=== PATIENT | female | born 1950 | race Asian ===

== ENCOUNTER 2017-02-17 12:23 | Emergency (ER) | payer OTHER ==
[~2017-02-17] VITALS: Ht 149.9 cm; Wt 52.3 kg
[~2017-02-17 12:23] MED LIST: AMLO10TA55 PO; ASCO10007 PO; BECL8.7A5 IH; CALC-854 PO; HYDR25TA PO; LISI40TA4 PO; MONT10TA24 PO; MULT-1259 PO; PRO AIR PO
[2017-02-17 12:38] LABS: GLUCOSE,POINT OF CARE 141 MG/DL (70-110)
[2017-02-17] MEDS ORDERED: DEXAMETHASONE SOD PHOS 4 MG/ML 5 ML VIAL IVP ONE (12:45)
[2017-02-17] MEDS ORDERED: DiphenhydrAMINE HCL 50 MG/ML VIAL IVP ONE (12:45)
[2017-02-17 15:05] VITALS: BP 118/74
== END 2017-02-17 15:07 | disposition home or self-care (01) ==
LOC: EMS 12:25
DX: L50.0 Allergic urticaria (principal); I10 Essential (primary) hypertension; J45.909 Unspecified asthma, uncomplicated
CPT/HCPCS: 82962; 96374; 96375; 99285; J1100; J1200

== ENCOUNTER 2018-03-16 11:10 | Inpatient (IN) | payer OTHER ==
[~2018-03-16] VITALS: Ht 149.9 cm; Wt 51.5 kg
[2018-03-16] MEDS ORDERED: IPRATROPIUM BROMIDE 0.5 MG/2.5 ML NEB SOLUTION NEB ONE (11:45)
[2018-03-16] MEDS ORDERED: PROPARACAINE/FLUORESCEIN SOD 0.5-0.25% 0.5 ML OPHTHALMIC SOLUTION OS ONE (11:45)
[2018-03-16] MEDS ORDERED: MethylPREDNISolone SOD SUCC 125 MG/2 ML VIAL IVP ONE (11:45)
[2018-03-16] MEDS ORDERED: ALBUTEROL SULFATE 5 MG/ML 20 ML NEB SOLN [BULK] NEB ONE (11:45)
[2018-03-16 11:55] LABS: BASOPHILS % (AUTO) 0.3 % (0.0-2.0); EOSINOPHILS % (AUTO) 0.1 % (1.0-6.0); HEMATOCRIT 40.8 % (36-46); HEMOGLOBIN 13.7 g/dL (12.0-16.0); LYMPHOCYTES # (AUTO) 1.8 K/uL (1.0-4.8); LYMPHOCYTES % (AUTO) 12.2 % (22.0-44.0); MEAN CORPUSCULAR HEMOGLOBIN 31.3 pg (26.0-34.0); MEAN CORPUSCULAR HGB CONC 33.6 G/dL (31.0-37.0); MEAN CORPUSCULAR VOLUME 93 fL (80-100); MONOCYTES # (AUTO) 1.8 K/uL (0.1-1.0); MONOCYTES % (AUTO) 11.6 % (2.0-9.0); NEUTROPHILS # (AUTO) 11.5 K/uL (1.8-7.7); NEUTROPHILS % (AUTO) 75.8 % (40.0-70.0); PLATELET COUNT (AUTO) 361 K/uL (150-450); RED BLOOD CELL COUNT(AUTO) 4.39 MIL/uL (4.00-5.20); RED CELL DISTRIBUTION WIDTH 12.5 % (11.5-14.5)
[2018-03-16 12:06] LABS: ANION GAP 7 mmol/L (8-16); CALCIUM, TOTAL 9.6 mg/dL (8.8-10.5); CARBON DIOXIDE 32 mmol/L (22-29); CHLORIDE 99 mmol/L (98-107); CREATININE 0.69 mg/dL (0.60-1.30); GLOMERULAR FILTR. RATE CALC > 60 mL/min (>60); GLUCOSE,RANDOM 103 mg/dL (70-110); POTASSIUM 3.3 mmol/L (3.5-5.1); SODIUM SERUM 138 mmol/L (136-145); UREA NITROGEN, BLOOD 11 mg/dL (7-18)
[2018-03-16 12:27] LABS: B-TYPE NATRIURETIC PEPTIDE 165 pg/mL (0-100)
[2018-03-16 12:37] LABS: ALANINE AMINOTRANSFERASE 44 U/L (12-78); ALBUMIN 3.3 g/dL (3.4-5.0); ALKALINE PHOSPHATASE 125 U/L (46-116); ASPARTATE AMINOTRANSFERASE 27 U/L (15-37); BILIRUBIN,TOTAL 0.3 mg/dL (0.1-1.0); CREATINE KINASE, TOTAL 124 U/L (26-192); TOTAL PROTEIN, SERUM 8.8 g/dL (6.4-8.2)
[2018-03-16] MEDS ORDERED: TRAVOPROST-Z 0.004% 2.5 ML OPHTHALMIC SOLUTION OS ONE (13:15)
[2018-03-16] MEDS ORDERED: ACETAMINOPHEN 325 MG TABLET PO PRN ×2 (15:30→20:45)
[2018-03-16] MEDS ORDERED: ONDANSETRON HCL 4 MG/2 ML VIAL IVP PRN ×2 (15:30→20:45)
[2018-03-16 16:35] VITALS: BP 140/58
[2018-03-16] MEDS ORDERED: LOSA50TA37 PO (16:55)
[2018-03-16] MEDS ORDERED: IBUP-1506 PO (16:55)
[2018-03-16] MEDS ORDERED: FLUT110HFA IH (16:57)
[2018-03-16] MEDS ORDERED: PNEUMOCOCCAL VACCINE POLYVALENT 0.5 ML VIAL [PPSV23] IM ONE (17:00)
[2018-03-16] MEDS ORDERED: POTASSIUM CHL 10 MEQ/WATER 50 ML IV PRN (18:00)
[2018-03-16] MEDS ORDERED: METF500T6 PO (18:00)
[2018-03-16] MEDS ORDERED: POTASSIUM CHLORIDE 20 MEQ ER TABLET PO PRN (18:00)
[2018-03-16] MEDS ORDERED: IPRATROPIUM BROMIDE 0.5 MG/2.5 ML NEB SOLUTION NEB SCH (19:00)
[2018-03-16] MEDS ORDERED: ALBUTEROL SULFATE 2.5 MG/0.5 ML NEB SOLUTION NEB SCH (19:00)
[2018-03-16 19:30] VITALS: BP 135/70
[2018-03-16] MEDS ORDERED: ZOLPIDEM TARTRATE 5 MG TABLET PO PRN (20:45)
[2018-03-16] MEDS ORDERED: IBUPROFEN 400 MG TABLET PO PRN (20:45)
[2018-03-16] MEDS ORDERED: IPRATROPIUM BROMIDE 0.5 MG/2.5 ML NEB SOLUTION NEB PRN (20:45)
[2018-03-16] MEDS ORDERED: ALBUTEROL SULFATE 2.5 MG/0.5 ML NEB SOLUTION NEB PRN (20:45)
[2018-03-16] MEDS ORDERED: FLUTICASONE PROPIONATE HFA 110 MCG/PUFF 12 GM INHALER IH SCH (21:00)
[2018-03-16] MEDS: HYDROCHLOROTHIAZIDE 25 MG TABLET PO SCH (21:00)
[2018-03-16] MEDS ORDERED: BECLOMETHASONE DIPR HFA 80 MCG/PUFF 10.6 GM INHALER IH SCH (21:00)
[2018-03-16] MEDS ORDERED: SODIUM CHLORIDE 0.9% 500 ML IV ONE (22:31)
[2018-03-16] MEDS: AZITHROMYCIN 500 MG/NS 250 ML IV SCH (22:42)
[2018-03-16] MEDS: MethylPREDNISolone SOD SUCC 125 MG/2 ML VIAL IVP SCH (23:21)
[2018-03-16] MEDS: CefTRIAXone SODIUM 1 GM in DEXTROSE 5%-WATER 10 ML IV SCH (23:21)
[2018-03-16] MEDS: HEPARIN SODIUM,PORCINE 5,000 UNITS/ML VIAL SQ SCH (23:28)
[2018-03-17] VITALS (7 sets, daily range): BP systolic 121–156; BP diastolic 56–70
[2018-03-17] MEDS: ALBUTEROL SULFATE 2.5 MG/0.5 ML NEB SOLUTION NEB SCH ×4 (02:21→19:23)
[2018-03-17] MEDS: IPRATROPIUM BROMIDE 0.5 MG/2.5 ML NEB SOLUTION NEB SCH ×4 (02:21→19:23)
[2018-03-17] MEDS: PANTOPRAZOLE SODIUM 40 MG/VIAL IVP SCH (08:32)
[2018-03-17] MEDS: HEPARIN SODIUM,PORCINE 5,000 UNITS/ML VIAL SQ SCH ×2 (08:32→16:54)
[2018-03-17] MEDS: MethylPREDNISolone SOD SUCC 125 MG/2 ML VIAL IVP SCH ×2 (08:32→16:57)
[2018-03-17] MEDS: MetFORMIN HCL 500 MG TABLET PO SCH (08:33)
[2018-03-17] MEDS: LISINOPRIL 20 MG TABLET PO SCH (08:33)
[2018-03-17] MEDS: LOSARTAN POTASSIUM 50 MG TABLET PO SCH (08:33)
[2018-03-17] MEDS: MONTELUKAST SODIUM 10 MG TABLET PO SCH (12:34)
[2018-03-17] MEDS: HYDROCHLOROTHIAZIDE 25 MG TABLET PO SCH (20:27)
[2018-03-17] MEDS: CefTRIAXone SODIUM 1 GM in DEXTROSE 5%-WATER 10 ML IV SCH (20:30)
[2018-03-17] MEDS: AZITHROMYCIN 500 MG/NS 250 ML IV SCH (21:24)
[2018-03-18] MEDS: HEPARIN SODIUM,PORCINE 5,000 UNITS/ML VIAL SQ SCH ×4 (00:16→23:16)
[2018-03-18] MEDS: MethylPREDNISolone SOD SUCC 125 MG/2 ML VIAL IVP SCH ×3 (00:16→16:00)
[2018-03-18] MEDS: IPRATROPIUM BROMIDE 0.5 MG/2.5 ML NEB SOLUTION NEB SCH ×4 (02:00→19:57)
[2018-03-18] MEDS: ALBUTEROL SULFATE 2.5 MG/0.5 ML NEB SOLUTION NEB SCH ×4 (02:00→19:56)
[2018-03-18 04:48] VITALS: BP 147/81
[2018-03-18 07:14] VITALS: BP 156/78
[2018-03-18 07:16] LABS: BASOPHILS % (AUTO) 0.1 % (0.0-2.0); EOSINOPHILS % (AUTO) 0 % (1.0-6.0); HEMATOCRIT 34.9 % (36-46); HEMOGLOBIN 12.5 g/dL (12.0-16.0); LYMPHOCYTES # (AUTO) 0.7 K/uL (1.0-4.8); LYMPHOCYTES % (AUTO) 4.6 % (22.0-44.0); MEAN CORPUSCULAR HEMOGLOBIN 34.2 pg (26.0-34.0); MEAN CORPUSCULAR HGB CONC 35.7 G/dL (31.0-37.0); MEAN CORPUSCULAR VOLUME 96 fL (80-100); MONOCYTES # (AUTO) 0.6 K/uL (0.1-1.0); MONOCYTES % (AUTO) 3.8 % (2.0-9.0); NEUTROPHILS # (AUTO) 13.5 K/uL (1.8-7.7); PLATELET COUNT (AUTO) 333 K/uL (150-450); RED BLOOD CELL COUNT(AUTO) 3.65 MIL/uL (4.00-5.20); RED CELL DISTRIBUTION WIDTH 12.6 % (11.5-14.5)
[2018-03-18] MEDS ORDERED: ALBU8.5H8 IH (07:20)
[2018-03-18 07:36] LABS: NEUTROPHILS % (AUTO) 91.5 % (40.0-70.0)
[2018-03-18 07:38] LABS: ANION GAP 2 mmol/L (8-16); CALCIUM, TOTAL 8.7 mg/dL (8.8-10.5); CARBON DIOXIDE 33 mmol/L (22-29); CHLORIDE 99 mmol/L (98-107); CREATININE 0.69 mg/dL (0.60-1.30); GLOMERULAR FILTR. RATE CALC > 60 mL/min (>60); GLUCOSE,RANDOM 153 mg/dL (70-110); POTASSIUM 3.9 mmol/L (3.5-5.1); SODIUM SERUM 134 mmol/L (136-145); UREA NITROGEN, BLOOD 19 mg/dL (7-18)
[2018-03-18] MEDS: MetFORMIN HCL 500 MG TABLET PO SCH (08:55)
[2018-03-18] MEDS: LISINOPRIL 20 MG TABLET PO SCH (08:55)
[2018-03-18] MEDS: PANTOPRAZOLE SODIUM 40 MG/VIAL IVP SCH (08:55)
[2018-03-18] MEDS: LOSARTAN POTASSIUM 50 MG TABLET PO SCH (08:56)
[2018-03-18] MEDS: AmLODIPine BESYLATE 10 MG TABLET PO SCH (08:56)
[2018-03-18 11:07] VITALS: BP 147/63
[2018-03-18] MEDS: MONTELUKAST SODIUM 10 MG TABLET PO SCH (11:27)
[2018-03-18 15:48] VITALS: BP 141/66
[2018-03-18 19:31] VITALS: BP 148/63
[2018-03-18] MEDS: HYDROCHLOROTHIAZIDE 25 MG TABLET PO SCH (20:25)
[2018-03-18] MEDS: CefTRIAXone SODIUM 1 GM in DEXTROSE 5%-WATER 10 ML IV SCH (20:25)
[2018-03-18] MEDS: PredniSONE 10 MG TABLET PO SCH (20:26)
[2018-03-18] MEDS: AZITHROMYCIN 500 MG/NS 250 ML IV SCH (23:16)
[2018-03-18 23:42] VITALS: BP 132/57
[2018-03-19] MEDS: ALBUTEROL SULFATE 2.5 MG/0.5 ML NEB SOLUTION NEB SCH ×3 (02:14→14:42)
[2018-03-19] MEDS: IPRATROPIUM BROMIDE 0.5 MG/2.5 ML NEB SOLUTION NEB SCH ×3 (02:14→14:42)
[2018-03-19 07:12] VITALS: BP 148/65
[2018-03-19] MEDS: LISINOPRIL 20 MG TABLET PO SCH (08:41)
[2018-03-19] MEDS: MetFORMIN HCL 500 MG TABLET PO SCH (08:41)
[2018-03-19] MEDS: PredniSONE 10 MG TABLET PO SCH (08:41)
[2018-03-19] MEDS: LOSARTAN POTASSIUM 50 MG TABLET PO SCH (08:41)
[2018-03-19] MEDS: HEPARIN SODIUM,PORCINE 5,000 UNITS/ML VIAL SQ SCH ×2 (08:41→16:00)
[2018-03-19] MEDS: PANTOPRAZOLE SODIUM 40 MG/VIAL IVP SCH (08:41)
[2018-03-19] MEDS: AmLODIPine BESYLATE 10 MG TABLET PO SCH (08:41)
[2018-03-19 09:06] LABS: HEMOGLOBIN 13.2 g/dL (12.0-16.0); MEAN CORPUSCULAR HEMOGLOBIN 33.6 pg (26.0-34.0); MEAN CORPUSCULAR HGB CONC 34.8 G/dL (31.0-37.0); MEAN CORPUSCULAR VOLUME 97 fL (80-100); PLATELET COUNT (AUTO) 386 K/uL (150-450); RED BLOOD CELL COUNT(AUTO) 3.94 MIL/uL (4.00-5.20); RED CELL DISTRIBUTION WIDTH 12.3 % (11.5-14.5)
[2018-03-19 09:53] LABS: BAND NEUTROPHILS % (MANUAL) 6 % (0-5); EOSINOPHILS % (MANUAL) 1 % (1-6); LYMPHOCYTES % (MANUAL) 10 % (22-44); MONOCYTES % (MANUAL) 6 % (2-9); SEGMENTED NEUTROPHILS % 77 % (40-70)
[2018-03-19] MEDS ORDERED: LORazepam 0.5 MG TABLET PO PRN (10:45)
[2018-03-19] MEDS ORDERED: CITALOPRAM HYDROBROMIDE 20 MG TABLET PO ONE (10:45)
[2018-03-19] MEDS ORDERED: POTASSIUM CHLORIDE 10 MEQ ER TABLET PO ONE (10:45)
[2018-03-19] MEDS ORDERED: LOSARTAN POTASSIUM 25 MG TABLET PO SCH (11:00)
[2018-03-19 11:08] VITALS: BP 133/60
[2018-03-19] MEDS: MONTELUKAST SODIUM 10 MG TABLET PO SCH (11:45)
[2018-03-19] MEDS ORDERED: AZITHROMYCIN 500 MG/NS 250 ML IV SCH (15:00)
[2018-03-19] MEDS ORDERED: PRED20 PO (15:01)
[2018-03-19] MEDS ORDERED: PRED10 PO (15:01)
[2018-03-19] MEDS ORDERED: PRED5 PO (15:01)
[2018-03-19] MEDS: AZITHROMYCIN 500 MG/NS 250 ML IV SCH (15:22)
[2018-03-20] MEDS ORDERED: LOSARTAN POTASSIUM 25 MG TABLET PO SCH (09:00)
[2018-03-20] MEDS ORDERED: CITALOPRAM HYDROBROMIDE 20 MG TABLET PO SCH (09:00)
[2018-03-20] MEDS ORDERED: LISINOPRIL 20 MG TABLET PO SCH (09:00)
== END 2018-03-19 17:10 | disposition home health service (06) | DRG 189 ==
LOC: EMS 11:11 → 5N 15:27
PROVIDERS: ADMIT Hospitalist; ATTEND Hospitalist
DX: J96.01 Acute respiratory failure with hypoxia (principal); J44.1 Chronic obstructive pulmonary disease with (acute) exacerbation; J44.0 Chronic obstructive pulmonary disease with (acute) lower respiratory infection; J20.9 Acute bronchitis, unspecified; H40.9 Unspecified glaucoma; I10 Essential (primary) hypertension; H54.61 Unqualified visual loss, right eye, normal vision left eye; Z79.899 Other long term (current) drug therapy; Z28.21 Immunization not carried out because of patient refusal
CPT/HCPCS: 71250; 83735; 84132; 93005; 94640; 94644; 99285; C9113; J0456; J0696; J1644; J2930; J7040; J7060

== ENCOUNTER 2018-08-17 10:09 | Emergency (ER) | payer OTHER ==
[~2018-08-17] VITALS: Ht 144.8 cm; Wt 51.4 kg
[~2018-08-17 10:09] MED LIST changes: +ALBU8.5H8 IH; +FLUT110HFA IH; +IBUP-1506 PO; +LOSA50TA25 PO; +METF-960 PO; +PRED10 PO; +PRED20 PO; +PRED5 PO; -PRO AIR PO
[2018-08-17 10:38] LABS: GLUCOSE,POINT OF CARE 89 MG/DL (70-110)
[2018-08-17 12:06] VITALS: BP 145/76
== END 2018-08-17 12:46 | disposition home or self-care (01) ==
LOC: EMS 10:10
DX: H66.91 Otitis media, unspecified, right ear (principal); I10 Essential (primary) hypertension; J44.9 Chronic obstructive pulmonary disease, unspecified; Z79.84 Long term (current) use of oral hypoglycemic drugs; Z79.899 Other long term (current) drug therapy

== ENCOUNTER 2018-11-26 06:43 | Inpatient (IN) | payer OTHER ==
[~2018-11-26] VITALS: Ht 142.2 cm; Wt 54.1 kg
[~2018-11-26 06:43] MED LIST changes: -HYDR25TA PO; -LOSA50TA25 PO; +LOSA50TA64 PO; -MONT10TA24 PO; -PRED10 PO; -PRED20 PO
[2018-11-26] MEDS ORDERED: KETOROLAC TROMETHAMINE 30 MG/ML VIAL IVP ONE (07:30)
[2018-11-26 07:34] LABS: GLUCOSE,POINT OF CARE 124 MG/DL (70-110)
[2018-11-26 08:10] LABS: BASOPHILS % (AUTO) 0.4 % (0.0-2.0); EOSINOPHILS % (AUTO) 0.2 % (1.0-6.0); HEMATOCRIT 43.4 % (36-46); HEMOGLOBIN 14.5 g/dL (12.0-16.0); LYMPHOCYTES # (AUTO) 0.7 K/uL (1.0-4.8); MEAN CORPUSCULAR HEMOGLOBIN 31.4 pg (26.0-34.0); MEAN CORPUSCULAR HGB CONC 33.4 G/dL (31.0-37.0); MEAN CORPUSCULAR VOLUME 94 fL (80-100); MONOCYTES # (AUTO) 0.3 K/uL (0.1-1.0); NEUTROPHILS # (AUTO) 7.5 K/uL (1.8-7.7); PLATELET COUNT (AUTO) 194 K/uL (150-450); RED BLOOD CELL COUNT(AUTO) 4.61 MIL/uL (4.00-5.20); RED CELL DISTRIBUTION WIDTH 12.7 % (11.5-14.5)
[2018-11-26 08:18] LABS: NEUTROPHILS % (AUTO) 88.4 % (40.0-70.0)
[2018-11-26 08:21] LABS: ANION GAP 9 mmol/L (8-16); CALCIUM, TOTAL 9.6 mg/dL (8.8-10.5); CARBON DIOXIDE 28 mmol/L (22-29); CHLORIDE 102 mmol/L (98-107); CREATININE 0.49 mg/dL (0.60-1.30); GLOMERULAR FILTR. RATE CALC > 60 mL/min (>60); GLUCOSE,RANDOM 134 mg/dL (70-110); POTASSIUM 3.7 mmol/L (3.5-5.1); SODIUM SERUM 139 mmol/L (136-145); UREA NITROGEN, BLOOD 18 mg/dL (7-18)
[2018-11-26 08:26] LABS: ALANINE AMINOTRANSFERASE 25 U/L (12-78); ALBUMIN 3.8 g/dL (3.4-5.0); ALKALINE PHOSPHATASE 59 U/L (46-116); ASPARTATE AMINOTRANSFERASE 29 U/L (15-37); BILIRUBIN,TOTAL 0.8 mg/dL (0.1-1.0); LIPASE 154 U/L (73-393); TOTAL PROTEIN, SERUM 7.7 g/dL (6.4-8.2)
[2018-11-26] MEDS ORDERED: SODIUM CHLORIDE 0.9% 0 ML ONE (09:01)
[2018-11-26] MEDS ORDERED: IOVERSOL 350 MG/ML 100 ML VIAL ONE (09:01)
[2018-11-26 09:31] LABS: APPEARANCE,URINE TURBID (CLEAR); BILIRUBIN,URINE NEGATIVE (NEGATIVE); GLUCOSE, URINE (UA) NEGATIVE (NEGATIVE); KETONES,URINE NEGATIVE (NEGATIVE); LEUKOCYTE ESTERASE ,URINE NEGATIVE (NEGATIVE); NITRATE,URINE NEGATIVE (NEGATIVE); OCCULT BLOOD,URINE NEGATIVE (NEGATIVE); PROTEIN,URINE NEGATIVE (NEGATIVE); UROBILINOGEN,URINE 0.2 mg/dL (<=1.0)
[2018-11-26] MEDS ORDERED: INSULIN LISPRO 100 UNITS/ML SQ PRN (11:15)
[2018-11-26] MEDS ORDERED: ONDANSETRON HCL 4 MG/2 ML VIAL IVP PRN (11:15)
[2018-11-26] MEDS ORDERED: ACETAMINOPHEN 325 MG TABLET PO PRN ×2 (11:15)
[2018-11-26] MEDS ORDERED: 0.9% SODIUM CHLORIDE 10 ML SYRINGE IVP PRN (11:15)
[2018-11-26] MEDS ORDERED: DEXTROSE 50%-WATER 25 GM/50 ML SYRINGE IVP PRN (11:15)
[2018-11-26] MEDS ORDERED: ALBUTEROL SULFATE 2.5 MG/0.5 ML NEB SOLUTION NEB PRN (11:15)
[2018-11-26] MEDS ORDERED: DEXTROSE 5%-0.45% SODIUM CHL 1,000 ML IV ONE (11:15)
[2018-11-26 13:39] VITALS: BP 153/79
[2018-11-26] MEDS: ONDANSETRON HCL 4 MG/2 ML VIAL IVP PRN (13:55)
[2018-11-26] MEDS: MORPHINE SULFATE 2 MG/ML SYRINGE IVP PRN ×3 (13:57→23:55)
[2018-11-26] MEDS ORDERED: BARIUM SULFATE 0.1% SUSPENSION 450 ML BOTTLE ONE (15:33)
[2018-11-26] MEDS ORDERED: SODIUM CHLORIDE 0.9% 100 ML ONE (15:38)
[2018-11-26] MEDS ORDERED: IOVERSOL 320 MG/ML 100 ML VIAL ONE (15:38)
[2018-11-26 16:17] VITALS: BP 150/80
[2018-11-26] MEDS: HEPARIN SODIUM,PORCINE 5,000 UNITS/ML VIAL SQ SCH ×2 (16:18→23:20)
[2018-11-26 16:59] LABS: GLUCOMETER DEV NAME(LOC) 6N.2; GLUCOSE,POINT OF CARE 136 MG/DL (70-110)
[2018-11-26 19:51] VITALS: BP 146/65
[2018-11-26] MEDS: DOCUSATE SODIUM 100 MG CAPSULE PO SCH (21:00)
[2018-11-26 22:09] LABS: GLUCOMETER DEV NAME(LOC) 6N.1; GLUCOSE,POINT OF CARE 165 MG/DL (70-110)
[2018-11-26 23:30] VITALS: BP 146/65
[2018-11-27] VITALS (7 sets, daily range): BP systolic 122–154; BP diastolic 56–67
[2018-11-27 06:14] LABS: GLUCOMETER DEV NAME(LOC) 6N.1; GLUCOSE,POINT OF CARE 128 MG/DL (70-110)
[2018-11-27 06:20] LABS: BASOPHILS % (AUTO) 0.3 % (0.0-2.0); EOSINOPHILS % (AUTO) 0 % (1.0-6.0); HEMATOCRIT 39.6 % (36-46); HEMOGLOBIN 13.2 g/dL (12.0-16.0); LYMPHOCYTES # (AUTO) 1.2 K/uL (1.0-4.8); LYMPHOCYTES % (AUTO) 17.3 % (22.0-44.0); MEAN CORPUSCULAR HEMOGLOBIN 31.4 pg (26.0-34.0); MEAN CORPUSCULAR HGB CONC 33.3 G/dL (31.0-37.0); MEAN CORPUSCULAR VOLUME 94 fL (80-100); MONOCYTES % (AUTO) 13.7 % (2.0-9.0); NEUTROPHILS # (AUTO) 4.9 K/uL (1.8-7.7); NEUTROPHILS % (AUTO) 68.7 % (40.0-70.0); PLATELET COUNT (AUTO) 184 K/uL (150-450); RED CELL DISTRIBUTION WIDTH 12.6 % (11.5-14.5)
[2018-11-27] MEDS: MORPHINE SULFATE 2 MG/ML SYRINGE IVP PRN (06:27)
[2018-11-27] MEDS: ONDANSETRON HCL 4 MG/2 ML VIAL IVP PRN (06:28)
[2018-11-27 06:50] LABS: ALANINE AMINOTRANSFERASE 22 U/L (12-78); ALKALINE PHOSPHATASE 47 U/L (46-116); ANION GAP 7 mmol/L (8-16); ASPARTATE AMINOTRANSFERASE 27 U/L (15-37); BILIRUBIN,TOTAL 0.7 mg/dL (0.1-1.0); CALCIUM, TOTAL 8.3 mg/dL (8.8-10.5); CARBON DIOXIDE 29 mmol/L (22-29); CHLORIDE 104 mmol/L (98-107); CREATININE 0.55 mg/dL (0.60-1.30); GLOMERULAR FILTR. RATE CALC > 60 mL/min (>60); GLUCOSE,RANDOM 116 mg/dL (70-110); POTASSIUM 3.3 mmol/L (3.5-5.1); SODIUM SERUM 140 mmol/L (136-145); TOTAL PROTEIN, SERUM 6.5 g/dL (6.4-8.2); UREA NITROGEN, BLOOD 16 mg/dL (7-18)
[2018-11-27] MEDS: HEPARIN SODIUM,PORCINE 5,000 UNITS/ML VIAL SQ SCH ×2 (08:00→16:00)
[2018-11-27] MEDS: DOCUSATE SODIUM 100 MG CAPSULE PO SCH ×2 (09:00→20:34)
[2018-11-27] MEDS ORDERED: SODIUM CHLORIDE 0.9% 500 ML IV ONE (09:22)
[2018-11-27] MEDS: POTASSIUM CHL 10 MEQ/WATER 50 ML IV SCH ×2 (09:26→16:43)
[2018-11-27] MEDS: PANTOPRAZOLE SODIUM 40 MG/VIAL IVP SCH (09:26)
[2018-11-27] MEDS ORDERED: BUPIVACAINE HCL/PF 0.25% 30 ML VIAL ONE (11:24)
[2018-11-27] MEDS ORDERED: RINGERS SOLUTION,LACTATED 2,000 ML IV ONE (11:25)
[2018-11-27] MEDS ORDERED: SODIUM CL IRRIG SOLN BAG 3,000 ML IRRIG ONE (11:25)
[2018-11-27] MEDS ORDERED: PROPOFOL 1% 20 ML VIAL IVP ONE (12:00)
[2018-11-27] MEDS ORDERED: SUCCINYLCHOLINE CHLORIDE 20 MG/ML 10 ML VIAL IVP ONE (12:00)
[2018-11-27] MEDS ORDERED: 0.9% SODIUM CHLORIDE 10 ML VIAL IVP ONE (12:00)
[2018-11-27] MEDS ORDERED: NEOSTIGMINE METHYLSULFATE 1 MG/ML 10 ML VIAL IVP ONE (12:00)
[2018-11-27] MEDS ORDERED: ROCURONIUM BROMIDE 10 MG/ML 5 ML VIAL IVP ONE (12:00)
[2018-11-27] MEDS ORDERED: GLYCOPYRROLATE 0.2 MG/ML VIAL IM ONE (12:00)
[2018-11-27] MEDS ORDERED: LIDOCAINE/PF 2% 5 ML VIAL INJ ONE (12:00)
[2018-11-27] MEDS ORDERED: KETOROLAC TROMETHAMINE 60 MG/2 ML VIAL IM ONE (12:00)
[2018-11-27] MEDS ORDERED: EPHEDrine SULFATE 50 MG/ML VIAL IM ONE (12:00)
[2018-11-27] MEDS ORDERED: ONDANSETRON HCL 4 MG/2 ML VIAL IVP ONE (12:00)
[2018-11-27] MEDS ORDERED: HYDROCODONE/ACETAMINOPHEN 5-325 MG TABLET PO PRN (13:15)
[2018-11-27] MEDS ORDERED: MORPHINE SULFATE 2 MG/ML SYRINGE IVP PRN (13:15)
[2018-11-27] MEDS ORDERED: METOCLOPRAMIDE HCL 5 MG/ML 2 ML VIAL IVP PRN (13:15)
[2018-11-27] MEDS: CeFAZolin 1 GM/DEXTROSE 50 ML IV SCH ×2 (14:32→20:35)
[2018-11-27 19:54] LABS: GLUCOMETER DEV NAME(LOC) 6N.1; GLUCOSE,POINT OF CARE 125 MG/DL (70-110)
[2018-11-27 19:54] LABS: GLUCOMETER DEV NAME(LOC) 6N.2; GLUCOSE,POINT OF CARE 106 MG/DL (70-110)
[2018-11-27 22:44] LABS: GLUCOMETER DEV NAME(LOC) 6N.2; GLUCOSE,POINT OF CARE 95 MG/DL (70-110)
[2018-11-28 05:10] VITALS: BP 133/61
[2018-11-28] MEDS: CeFAZolin 1 GM/DEXTROSE 50 ML IV SCH (05:50)
[2018-11-28 05:53] LABS: BASOPHILS % (AUTO) 0.5 % (0.0-2.0); EOSINOPHILS % (AUTO) 2.6 % (1.0-6.0); HEMATOCRIT 37.5 % (36-46); HEMOGLOBIN 12.7 g/dL (12.0-16.0); LYMPHOCYTES # (AUTO) 1.3 K/uL (1.0-4.8); LYMPHOCYTES % (AUTO) 27.9 % (22.0-44.0); MEAN CORPUSCULAR HEMOGLOBIN 32.1 pg (26.0-34.0); MEAN CORPUSCULAR HGB CONC 33.8 G/dL (31.0-37.0); MEAN CORPUSCULAR VOLUME 95 fL (80-100); MONOCYTES # (AUTO) 0.8 K/uL (0.1-1.0); MONOCYTES % (AUTO) 16.1 % (2.0-9.0); NEUTROPHILS # (AUTO) 2.5 K/uL (1.8-7.7); NEUTROPHILS % (AUTO) 52.9 % (40.0-70.0); PLATELET COUNT (AUTO) 148 K/uL (150-450); RED BLOOD CELL COUNT(AUTO) 3.94 MIL/uL (4.00-5.20); RED CELL DISTRIBUTION WIDTH 12.6 % (11.5-14.5)
[2018-11-28 06:04] LABS: GLUCOMETER DEV NAME(LOC) 6N.1; GLUCOSE,POINT OF CARE 83 MG/DL (70-110)
[2018-11-28 06:21] LABS: ALANINE AMINOTRANSFERASE 19 U/L (12-78); ALBUMIN 2.6 g/dL (3.4-5.0); ALKALINE PHOSPHATASE 47 U/L (46-116); ANION GAP 6 mmol/L (8-16); ASPARTATE AMINOTRANSFERASE 24 U/L (15-37); CALCIUM, TOTAL 7.7 mg/dL (8.8-10.5); CARBON DIOXIDE 29 mmol/L (22-29); CHLORIDE 108 mmol/L (98-107); CREATININE 0.52 mg/dL (0.60-1.30); GLOMERULAR FILTR. RATE CALC > 60 mL/min (>60); GLUCOSE,RANDOM 84 mg/dL (70-110); POTASSIUM 3.5 mmol/L (3.5-5.1); SODIUM SERUM 143 mmol/L (136-145); TOTAL PROTEIN, SERUM 5.8 g/dL (6.4-8.2); UREA NITROGEN, BLOOD 14 mg/dL (7-18)
[2018-11-28] MEDS ORDERED: FentaNYL CITRATE-PF 100 MCG/2 ML VIAL IV ONE (06:50)
[2018-11-28] MEDS ORDERED: MIDAZOLAM HCL 2 MG/2 ML VIAL IVP ONE (06:50)
[2018-11-28 07:55] VITALS: BP 129/77
[2018-11-28] MEDS: HEPARIN SODIUM,PORCINE 5,000 UNITS/ML VIAL SQ SCH ×4 (09:36→23:55)
[2018-11-28] MEDS: PANTOPRAZOLE SODIUM 40 MG/VIAL IVP SCH (09:36)
[2018-11-28] MEDS: DOCUSATE SODIUM 100 MG CAPSULE PO SCH ×2 (09:36→20:42)
[2018-11-28 12:09] VITALS: BP 138/65
[2018-11-28 14:35] LABS: GLUCOMETER DEV NAME(LOC) 6N.1; GLUCOSE,POINT OF CARE 74 MG/DL (70-110)
[2018-11-28 15:44] VITALS: BP 126/68
[2018-11-28 19:39] VITALS: BP 113/46
[2018-11-28 19:49] LABS: GLUCOMETER DEV NAME(LOC) 6N.2; GLUCOSE,POINT OF CARE 142 MG/DL (70-110)
[2018-11-28 23:30] VITALS: BP 119/54
[2018-11-29 03:45] VITALS: BP 123/62
[2018-11-29 04:49] LABS: GLUCOMETER DEV NAME(LOC) 6N.1; GLUCOSE,POINT OF CARE 81 MG/DL (70-110)
[2018-11-29 06:59] LABS: GLUCOMETER DEV NAME(LOC) 6N.2; GLUCOSE,POINT OF CARE 74 MG/DL (70-110)
[2018-11-29] MEDS: DOCUSATE SODIUM 100 MG CAPSULE PO SCH (07:59)
[2018-11-29] MEDS: HEPARIN SODIUM,PORCINE 5,000 UNITS/ML VIAL SQ SCH ×2 (08:00→15:54)
[2018-11-29] MEDS: PANTOPRAZOLE SODIUM 40 MG/VIAL IVP SCH (08:00)
[2018-11-29 08:02] VITALS: BP 141/69
[2018-11-29 12:33] VITALS: BP 147/54
[2018-11-29 15:39] VITALS: BP 138/56
[2018-11-30 09:28] LABS: GLUCOMETER DEV NAME(LOC) 6N.1; GLUCOSE,POINT OF CARE 128 MG/DL (70-110)
[2018-11-30 09:28] LABS: GLUCOMETER DEV NAME(LOC) 6N.2; GLUCOSE,POINT OF CARE 119 MG/DL (70-110)
== END 2018-11-29 18:40 | disposition home or self-care (01) | DRG 336 ==
LOC: EMS 06:43 → 6N 11:31
PROVIDERS: ADMIT Internal Medicine; ATTEND Internal Medicine
PROC: 3E02340 Introduction of Influenza Vaccine into Muscle, Percutaneous Approach (ICD-10-PCS; 2018-11-26)
PROC: 0DN84ZZ Release Small Intestine, Percutaneous Endoscopic Approach (ICD-10-PCS; principal; 2018-11-27 12:30)
DX: K56.50 Intestinal adhesions [bands], unspecified as to partial versus complete obstruction (principal); K46.0 Unspecified abdominal hernia with obstruction, without gangrene; Q43.3 Congenital malformations of intestinal fixation; E11.9 Type 2 diabetes mellitus without complications; J45.909 Unspecified asthma, uncomplicated; Z68.26 Body mass index [BMI] 26.0-26.9, adult; Z23 Encounter for immunization; E27.9 Disorder of adrenal gland, unspecified; I10 Essential (primary) hypertension; J44.9 Chronic obstructive pulmonary disease, unspecified; N28.1 Cyst of kidney, acquired; Z82.49 Family history of ischemic heart disease and other diseases of the circulatory system; Z87.891 Personal history of nicotine dependence; Z79.899 Other long term (current) drug therapy; Z79.84 Long term (current) use of oral hypoglycemic drugs
CPT/HCPCS: 74019; 74176; 74177; 76705; 93005; 93306; 96361; 96374; C9113; G0378; J0330; J0690; J1644; J1885; J2250; J2270; J2405; J2704; J3010; J3480; J3490; J7040; J7050; J7120

== ENCOUNTER 2019-12-25 11:16 | Inpatient (IN) | payer OTHER ==
[~2019-12-25] VITALS: Ht 154.9 cm; Wt 53.7 kg
[~2019-12-25 11:16] MED LIST changes: -AMLO10TA55 PO; -ASCO10007 PO; -IBUP-1506 PO; -LISI40TA4 PO; -LOSA50TA64 PO; -PRED5 PO
[2019-12-25] MEDS ORDERED: ISOS10TA16 PO (11:30)
[2019-12-25] MEDS ORDERED: LOSA-30 PO (11:30)
[2019-12-25] MEDS ORDERED: ATOR20TA86 PO (11:30)
[2019-12-25] MEDS ORDERED: AMLO10TA7 PO (11:30)
[2019-12-25] MEDS ORDERED: ASPI-556 PO (11:30)
[2019-12-25] MEDS ORDERED: MONT10TA21 PO (11:30)
[2019-12-25] MEDS ORDERED: ACETAMINOPHEN 325 MG TABLET PO ONE (11:45)
[2019-12-25] MEDS ORDERED: LOSA-88 PO (11:51)
[2019-12-25] MEDS ORDERED: ISOS30TA6 PO (11:51)
[2019-12-25] MEDS ORDERED: ALEN70TA19 PO (11:51)
[2019-12-25] MEDS ORDERED: BECL10.62 IH (11:51)
[2019-12-25] MEDS ORDERED: AZITHROMYCIN 500 MG/NS 250 ML IV ONE (13:00)
[2019-12-25] MEDS ORDERED: CefTRIAXone 1 GM/DEXTROSE 50 ML IV ONE (13:00)
[2019-12-25 13:41] LABS: BASOPHILS % (AUTO) 0.3 % (0.0-2.0); EOSINOPHILS % (AUTO) 1.1 % (1.0-6.0); HEMATOCRIT 35.9 % (36-46); HEMOGLOBIN 11.7 g/dL (12.0-16.0); LYMPHOCYTES # (AUTO) 1.1 K/uL (1.0-4.8); LYMPHOCYTES % (AUTO) 9.3 % (22.0-44.0); MEAN CORPUSCULAR HEMOGLOBIN 30.5 pg (26.0-34.0); MEAN CORPUSCULAR HGB CONC 32.5 G/dL (31.0-37.0); MEAN CORPUSCULAR VOLUME 94 fL (80-100); MONOCYTES # (AUTO) 1.5 K/uL (0.1-1.0); MONOCYTES % (AUTO) 12.7 % (2.0-9.0); NEUTROPHILS % (AUTO) 76.6 % (40.0-70.0); PLATELET COUNT (AUTO) 156 K/uL (150-450); RED BLOOD CELL COUNT(AUTO) 3.83 MIL/uL (4.00-5.20); RED CELL DISTRIBUTION WIDTH 12.5 % (11.5-14.5)
[2019-12-25 13:53] LABS: ANION GAP 7 mmol/L (8-16); CALCIUM, TOTAL 9.5 mg/dL (8.8-10.5); CARBON DIOXIDE 29 mmol/L (22-29); CHLORIDE 101 mmol/L (98-107); CREATININE 0.71 mg/dL (0.60-1.30); GLOMERULAR FILTR. RATE CALC > 60 mL/min (>60); GLUCOSE,RANDOM 106 mg/dL (70-110); POTASSIUM 3.6 mmol/L (3.5-5.1); SODIUM SERUM 137 mmol/L (136-145); UREA NITROGEN, BLOOD 11 mg/dL (7-18)
[2019-12-25 13:59] LABS: ALANINE AMINOTRANSFERASE 19 U/L (12-78); ALBUMIN 2.9 g/dL (3.4-5.0); ALKALINE PHOSPHATASE 66 U/L (46-116); ASPARTATE AMINOTRANSFERASE 20 U/L (15-37); BILIRUBIN,TOTAL 0.7 mg/dL (0.1-1.0); TOTAL PROTEIN, SERUM 6.8 g/dL (6.4-8.2)
[2019-12-25] MEDS ORDERED: ALBUTEROL SULFATE 2.5 MG/0.5 ML NEB SOLUTION NEB PRN ×3 (14:15→20:45)
[2019-12-25] MEDS ORDERED: ACETAMINOPHEN 325 MG TABLET PO PRN (14:15)
[2019-12-25] MEDS ORDERED: IPRATROPIUM BROMIDE 0.5 MG/2.5 ML NEB SOLUTION NEB PRN ×3 (14:15→20:45)
[2019-12-25] MEDS ORDERED: 0.9% SODIUM CHLORIDE 10 ML SYRINGE IVP PRN ×2 (14:15→20:45)
[2019-12-25] MEDS ORDERED: ONDANSETRON HCL 4 MG/2 ML VIAL IVP PRN ×2 (14:15→20:45)
[2019-12-25] MEDS ORDERED: MAGNESIUM OXIDE 400 MG TABLET PO PRN (20:45)
[2019-12-25] MEDS ORDERED: ZOLPIDEM TARTRATE 5 MG TABLET PO PRN (20:45)
[2019-12-25] MEDS ORDERED: POTASSIUM CHLORIDE 20 MEQ ER TABLET PO PRN (20:45)
[2019-12-25] MEDS ORDERED: ACETAMINOPHEN 650 MG/20.3 ML SOLUTION UDCUP PO PRN (20:45)
[2019-12-25] MEDS ORDERED: POTASSIUM CHL 10 MEQ/WATER 50 ML IV PRN (20:45)
[2019-12-25] MEDS ORDERED: MAGNESIUM SULFATE 2 GM/WATER 50 ML IV PRN (20:45)
[2019-12-25] MEDS ORDERED: MAGNESIUM SULFATE 4 GM/WATER 100 ML IV PRN (20:45)
[2019-12-25 21:30] VITALS: BP 141/60
[2019-12-25] MEDS: FLUTICASONE FUROATE 100 MCG/INH INHALER [14] IH SCH (22:00)
[2019-12-25] MEDS: PANTOPRAZOLE SODIUM 40 MG DR TABLET PO SCH (22:00)
[2019-12-25] MEDS: BECLOMETHASONE DIPR HFA 80 MCG/PUFF 10.6 GM INHALER IH SCH (22:00)
[2019-12-26 00:04] VITALS: BP 125/65
[2019-12-26] MEDS ORDERED: IPRATROPIUM BROMIDE 0.5 MG/2.5 ML NEB SOLUTION NEB SCH (02:00)
[2019-12-26] MEDS ORDERED: ALBUTEROL SULFATE 2.5 MG/0.5 ML NEB SOLUTION NEB SCH (02:00)
[2019-12-26] MEDS: ACETAMINOPHEN 325 MG TABLET PO PRN (04:34)
[2019-12-26 05:33] VITALS: BP 116/56
[2019-12-26 07:25] LABS: BASOPHILS % (AUTO) 0.4 % (0.0-2.0); EOSINOPHILS % (AUTO) 3.7 % (1.0-6.0); HEMOGLOBIN 12.2 g/dL (12.0-16.0); LYMPHOCYTES # (AUTO) 1.5 K/uL (1.0-4.8); MEAN CORPUSCULAR HEMOGLOBIN 30.9 pg (26.0-34.0); MEAN CORPUSCULAR VOLUME 94 fL (80-100); MONOCYTES # (AUTO) 1.4 K/uL (0.1-1.0); MONOCYTES % (AUTO) 13.9 % (2.0-9.0); NEUTROPHILS # (AUTO) 6.9 K/uL (1.8-7.7); PLATELET COUNT (AUTO) 171 K/uL (150-450); RED BLOOD CELL COUNT(AUTO) 3.95 MIL/uL (4.00-5.20); RED CELL DISTRIBUTION WIDTH 12.7 % (11.5-14.5)
[2019-12-26 07:43] LABS: ALANINE AMINOTRANSFERASE 24 U/L (12-78); ALKALINE PHOSPHATASE 76 U/L (46-116); ANION GAP 6 mmol/L (8-16); ASPARTATE AMINOTRANSFERASE 25 U/L (15-37); BILIRUBIN,TOTAL 0.6 mg/dL (0.1-1.0); CALCIUM, TOTAL 8.8 mg/dL (8.8-10.5); CARBON DIOXIDE 29 mmol/L (22-29); CHLORIDE 101 mmol/L (98-107); CREATININE 0.79 mg/dL (0.60-1.30); GLOMERULAR FILTR. RATE CALC > 60 mL/min (>60); GLUCOSE,RANDOM 101 mg/dL (70-110); POTASSIUM 3.4 mmol/L (3.5-5.1); SODIUM SERUM 136 mmol/L (136-145); TOTAL PROTEIN, SERUM 7.2 g/dL (6.4-8.2); UREA NITROGEN, BLOOD 9 mg/dL (7-18)
[2019-12-26 07:52] VITALS: BP 122/66
[2019-12-26] MEDS: MONTELUKAST SODIUM 10 MG TABLET PO SCH (08:10)
[2019-12-26] MEDS: ATORVASTATIN CALCIUM 20 MG TABLET PO SCH (08:10)
[2019-12-26] MEDS: CALCIUM CIT/VITAMIN D3 200 MG-250 UNITS TABLET PO SCH (08:10)
[2019-12-26] MEDS: ISOSORBIDE MONONITRATE 30 MG ER TABLET PO SCH (08:10)
[2019-12-26] MEDS: BECLOMETHASONE DIPR HFA 80 MCG/PUFF 10.6 GM INHALER IH SCH ×2 (08:11→21:46)
[2019-12-26] MEDS: MetFORMIN HCL 500 MG TABLET PO SCH (08:11)
[2019-12-26] MEDS: LOSARTAN POTASSIUM 50 MG TABLET PO SCH (08:11)
[2019-12-26] MEDS: ASPIRIN 81 MG EC TABLET PO SCH (08:11)
[2019-12-26] MEDS: FLUTICASONE FUROATE 100 MCG/INH INHALER [14] IH SCH ×2 (08:11→21:45)
[2019-12-26] MEDS: PANTOPRAZOLE SODIUM 40 MG DR TABLET PO SCH (08:11)
[2019-12-26] MEDS: ALBUTEROL SULFATE 2.5 MG/0.5 ML NEB SOLUTION NEB SCH ×3 (08:51→20:16)
[2019-12-26] MEDS: IPRATROPIUM BROMIDE 0.5 MG/2.5 ML NEB SOLUTION NEB SCH ×3 (08:51→20:16)
[2019-12-26] MEDS ORDERED: AmLODIPine BESYLATE 10 MG TABLET PO SCH (09:00)
[2019-12-26] MEDS ORDERED: POTASSIUM CHLORIDE 20 MEQ ER TABLET PO PRN (11:00)
[2019-12-26] MEDS ORDERED: MAGNESIUM SULFATE 2 GM/WATER 50 ML IV PRN (11:00)
[2019-12-26] MEDS ORDERED: MAGNESIUM OXIDE 400 MG TABLET PO PRN (11:00)
[2019-12-26] MEDS ORDERED: POTASSIUM CHL 10 MEQ/WATER 50 ML IV PRN (11:00)
[2019-12-26] MEDS ORDERED: MAGNESIUM SULFATE 4 GM/WATER 100 ML IV PRN (11:00)
[2019-12-26 12:00] VITALS: BP 118/72
[2019-12-26] MEDS: HEPARIN SODIUM,PORCINE 5,000 UNITS/ML VIAL SQ SCH ×2 (12:01→21:45)
[2019-12-26] MEDS: CefTRIAXone 1 GM/DEXTROSE 50 ML IV SCH (12:02)
[2019-12-26] MEDS ORDERED: SODIUM CHLORIDE 0.9% 250 ML IV ONE (12:13)
[2019-12-26] MEDS: AZITHROMYCIN 500 MG/NS 250 ML IV SCH (15:42)
[2019-12-26 20:55] VITALS: BP 120/60
[2019-12-27 00:14] LABS: INFLUENZA TYPE A NEGATIVE FOR TYPE A (NEGATIVE); INFLUENZA TYPE B NEGATIVE FOR TYPE B (NEGATIVE)
[2019-12-27 01:10] VITALS: BP 123/65
[2019-12-27] MEDS: ACETAMINOPHEN 325 MG TABLET PO PRN (01:36)
[2019-12-27] MEDS: ALBUTEROL SULFATE 2.5 MG/0.5 ML NEB SOLUTION NEB SCH ×4 (02:21→19:31)
[2019-12-27] MEDS: IPRATROPIUM BROMIDE 0.5 MG/2.5 ML NEB SOLUTION NEB SCH ×4 (02:21→19:31)
[2019-12-27 04:56] VITALS: BP 120/65
[2019-12-27 07:19] VITALS: BP 137/62
[2019-12-27] MEDS: MetFORMIN HCL 500 MG TABLET PO SCH (08:00)
[2019-12-27] MEDS: ISOSORBIDE MONONITRATE 30 MG ER TABLET PO SCH (08:27)
[2019-12-27] MEDS: PANTOPRAZOLE SODIUM 40 MG DR TABLET PO SCH (08:27)
[2019-12-27] MEDS: HEPARIN SODIUM,PORCINE 5,000 UNITS/ML VIAL SQ SCH ×2 (08:27→21:22)
[2019-12-27] MEDS: MONTELUKAST SODIUM 10 MG TABLET PO SCH (08:27)
[2019-12-27] MEDS: ATORVASTATIN CALCIUM 20 MG TABLET PO SCH (08:27)
[2019-12-27] MEDS: LOSARTAN POTASSIUM 50 MG TABLET PO SCH (08:27)
[2019-12-27] MEDS: BECLOMETHASONE DIPR HFA 80 MCG/PUFF 10.6 GM INHALER IH SCH ×2 (08:30→21:22)
[2019-12-27] MEDS: FLUTICASONE FUROATE 100 MCG/INH INHALER [14] IH SCH ×2 (08:30→21:23)
[2019-12-27] MEDS: CALCIUM CIT/VITAMIN D3 200 MG-250 UNITS TABLET PO SCH (08:30)
[2019-12-27] MEDS: ASPIRIN 81 MG EC TABLET PO SCH (08:30)
[2019-12-27 08:31] LABS: HEMOGLOBIN A1C 6.6 % (3.8-5.6)
[2019-12-27 09:00] LABS: MAGNESIUM 1.8 mg/dL (1.80-2.40); PHOSPHORUS 3.2 mg/dL (2.5-4.9)
[2019-12-27 11:26] VITALS: BP 121/49
[2019-12-27] MEDS: CefTRIAXone 1 GM/DEXTROSE 50 ML IV SCH (12:55)
[2019-12-27] MEDS: AZITHROMYCIN 500 MG/NS 250 ML IV SCH (15:07)
[2019-12-27 15:45] VITALS: BP 125/72
[2019-12-27 20:04] VITALS: BP 127/65
[2019-12-28] VITALS (7 sets, daily range): BP systolic 120–139; BP diastolic 62–78
[2019-12-28] MEDS: IPRATROPIUM BROMIDE 0.5 MG/2.5 ML NEB SOLUTION NEB SCH ×4 (02:00→20:45)
[2019-12-28] MEDS: ALBUTEROL SULFATE 2.5 MG/0.5 ML NEB SOLUTION NEB SCH ×4 (02:00→20:45)
[2019-12-28] MEDS: ATORVASTATIN CALCIUM 20 MG TABLET PO SCH (08:44)
[2019-12-28] MEDS: PANTOPRAZOLE SODIUM 40 MG DR TABLET PO SCH (08:44)
[2019-12-28] MEDS: ASPIRIN 81 MG EC TABLET PO SCH (08:44)
[2019-12-28] MEDS: MetFORMIN HCL 500 MG TABLET PO SCH (08:44)
[2019-12-28] MEDS: MONTELUKAST SODIUM 10 MG TABLET PO SCH (08:44)
[2019-12-28] MEDS: LOSARTAN POTASSIUM 50 MG TABLET PO SCH (08:45)
[2019-12-28] MEDS: CALCIUM CIT/VITAMIN D3 200 MG-250 UNITS TABLET PO SCH (08:45)
[2019-12-28] MEDS: ISOSORBIDE MONONITRATE 30 MG ER TABLET PO SCH (08:45)
[2019-12-28] MEDS: HEPARIN SODIUM,PORCINE 5,000 UNITS/ML VIAL SQ SCH ×2 (08:45→20:09)
[2019-12-28] MEDS: BECLOMETHASONE DIPR HFA 80 MCG/PUFF 10.6 GM INHALER IH SCH ×2 (08:47→20:02)
[2019-12-28] MEDS: FLUTICASONE FUROATE 100 MCG/INH INHALER [14] IH SCH ×2 (08:48→20:08)
[2019-12-28] MEDS: CefTRIAXone 1 GM/DEXTROSE 50 ML IV SCH (14:19)
[2019-12-28] MEDS: AZITHROMYCIN 500 MG/NS 250 ML IV SCH (16:58)
[2019-12-29] MEDS: IPRATROPIUM BROMIDE 0.5 MG/2.5 ML NEB SOLUTION NEB SCH ×3 (01:44→13:24)
[2019-12-29] MEDS: ALBUTEROL SULFATE 2.5 MG/0.5 ML NEB SOLUTION NEB SCH ×3 (01:44→13:24)
[2019-12-29 06:25] VITALS: BP 124/63
[2019-12-29 08:00] VITALS: BP 133/67
[2019-12-29 09:15] VITALS: BP 132/65
[2019-12-29] MEDS: MONTELUKAST SODIUM 10 MG TABLET PO SCH (09:19)
[2019-12-29] MEDS: ASPIRIN 81 MG EC TABLET PO SCH (09:19)
[2019-12-29] MEDS: HEPARIN SODIUM,PORCINE 5,000 UNITS/ML VIAL SQ SCH (09:20)
[2019-12-29] MEDS: ATORVASTATIN CALCIUM 20 MG TABLET PO SCH (09:20)
[2019-12-29] MEDS: MetFORMIN HCL 500 MG TABLET PO SCH (09:22)
[2019-12-29] MEDS: LOSARTAN POTASSIUM 50 MG TABLET PO SCH (09:22)
[2019-12-29] MEDS: BECLOMETHASONE DIPR HFA 80 MCG/PUFF 10.6 GM INHALER IH SCH (09:29)
[2019-12-29] MEDS: FLUTICASONE FUROATE 100 MCG/INH INHALER [14] IH SCH (09:29)
[2019-12-29 11:21] LABS: BASOPHILS % (AUTO) 0.7 % (0.0-2.0); EOSINOPHILS % (AUTO) 5.2 % (1.0-6.0); HEMATOCRIT 37.9 % (36-46); HEMOGLOBIN 12.4 g/dL (12.0-16.0); LYMPHOCYTES # (AUTO) 1.7 K/uL (1.0-4.8); LYMPHOCYTES % (AUTO) 19.7 % (22.0-44.0); MEAN CORPUSCULAR HEMOGLOBIN 30.7 pg (26.0-34.0); MEAN CORPUSCULAR HGB CONC 32.8 G/dL (31.0-37.0); MEAN CORPUSCULAR VOLUME 94 fL (80-100); MONOCYTES # (AUTO) 1.2 K/uL (0.1-1.0); MONOCYTES % (AUTO) 14.6 % (2.0-9.0); NEUTROPHILS # (AUTO) 5.1 K/uL (1.8-7.7); NEUTROPHILS % (AUTO) 59.8 % (40.0-70.0); PLATELET COUNT (AUTO) 250 K/uL (150-450); RED BLOOD CELL COUNT(AUTO) 4.05 MIL/uL (4.00-5.20); RED CELL DISTRIBUTION WIDTH 12.6 % (11.5-14.5)
[2019-12-29 11:29] LABS: ANION GAP 9 mmol/L (8-16); CARBON DIOXIDE 27 mmol/L (22-29); CHLORIDE 102 mmol/L (98-107); CREATININE 0.72 mg/dL (0.60-1.30); GLUCOSE,RANDOM 136 mg/dL (70-110); POTASSIUM 3.8 mmol/L (3.5-5.1); SODIUM SERUM 138 mmol/L (136-145); UREA NITROGEN, BLOOD 10 mg/dL (7-18)
[2019-12-29 11:30] LABS: CALCIUM, TOTAL 9.4 mg/dL (8.8-10.5); GLOMERULAR FILTR. RATE CALC > 60 mL/min (>60)
[2019-12-29] MEDS: CALCIUM CIT/VITAMIN D3 200 MG-250 UNITS TABLET PO SCH (12:03)
[2019-12-29] MEDS: PANTOPRAZOLE SODIUM 40 MG DR TABLET PO SCH (12:03)
[2019-12-29] MEDS: ISOSORBIDE MONONITRATE 30 MG ER TABLET PO SCH (12:03)
[2019-12-29] MEDS: CefTRIAXone 1 GM/DEXTROSE 50 ML IV SCH (12:04)
[2019-12-29 12:45] VITALS: BP 142/53
[2019-12-29] MEDS: AZITHROMYCIN 500 MG/NS 250 ML IV SCH (13:21)
[2019-12-29 15:30] VITALS: BP 135/57
[2020-01-05] MEDS ORDERED: ALENDRONATE SODIUM 70 MG TABLET PO SCH (06:30)
== END 2019-12-29 14:30 | disposition home or self-care (01) | DRG 194 ==
LOC: EMS 11:23 → 5S 19:00 → 5N 12-26 22:30
PROVIDERS: ADMIT Internal Medicine; ATTEND Internal Medicine
DX: J18.9 Pneumonia, unspecified organism (principal); J44.0 Chronic obstructive pulmonary disease with (acute) lower respiratory infection; J44.9 Chronic obstructive pulmonary disease, unspecified; E11.9 Type 2 diabetes mellitus without complications; I10 Essential (primary) hypertension; E87.6 Hypokalemia; E83.42 Hypomagnesemia
CPT/HCPCS: 71250; 83036; 83605; 83735; 84100; 84132; 87040; 87070; 87205; 87635; 87804; 93005; 94640; G0378; J0456; J0696; J1644; J3475; J3535; J7050

== ENCOUNTER 2020-05-08 06:37 | Day surgery (SDC) | payer OTHER ==
[~2020-05-08] VITALS: Ht 149.9 cm; Wt 55.0 kg
[~2020-05-08 06:37] MED LIST changes: +ALEN70TA19 PO; +AMLO-258 PO; +ASPI-556 PO; +ATOR20TA86 PO; +BECL10.62 IH; -BECL8.7A5 IH; +ISOS30TA6 PO; +LOSA50TA37 PO; +MONT10TA21 PO; +SODIUM CHLORIDE 0.9% 1,000 ML IV ONE; +SODIUM CHLORIDE 0.9% 1,000 ML ONE
[2020-05-08] MEDS ORDERED: MIDAZOLAM HCL 2 MG/2 ML VIAL ONE (07:56)
[2020-05-08] MEDS ORDERED: FentaNYL CITRATE-PF 100 MCG/2 ML VIAL ONE (07:57)
[2020-05-08] MEDS ORDERED: MethylPREDNISolone SOD SUCC 125 MG/2 ML VIAL ONE (09:13)
[2020-05-08] MEDS ORDERED: MethylPREDNISolone SOD SUCC 125 MG/2 ML VIAL IVP ONE (09:15)
[2020-05-08] MEDS ORDERED: LIDOCAINE 2% 30 ML JELLY TP ONE (12:00)
[2020-05-08] MEDS ORDERED: BENZOCAINE 20% 50 MCG/SPRAY 57 GM TP ONE (12:00)
[2020-05-08] MEDS ORDERED: LIDOCAINE 4% 50 ML SOLUTION TP ONE (12:00)
[2020-05-08] MEDS ORDERED: ALBUTEROL SULFATE 2.5 MG/0.5 ML NEB SOLUTION NEB ONE (12:00)
[2020-05-08] MEDS ORDERED: OXYGEN THERAPY IH SCH (20:00)
== END 2020-05-08 10:40 | disposition home or self-care (01) ==
LOC: SURGERY 06:37
PROVIDERS: ATTEND Internal Medicine Critical Care Medicine
DX: J38.4 Edema of larynx (principal); B37.0 Candidal stomatitis; M19.90 Unspecified osteoarthritis, unspecified site; Z87.891 Personal history of nicotine dependence; Z98.890 Other specified postprocedural states
CPT/HCPCS: 31623; 31624; 71045; 87015; 87070; 87101; 87205; 87206; 87220; 88108; 88312; J2250; J2930; J3010; J7030; J7613; Z7610

== ENCOUNTER 2021-01-28 10:12 | Emergency (ER) | payer OTHER ==
[~2021-01-28] VITALS: Ht 152.4 cm; Wt 52.3 kg
[~2021-01-28 10:12] MED LIST changes: -ALEN70TA19 PO; +ALEN70TA80 PO; -ASPI-556 PO; -ATOR20TA86 PO; -BECL10.62 IH; -ISOS30TA6 PO; +ISOS30TA92 PO; -METF-960 PO; -MONT10TA21 PO; -SODIUM CHLORIDE 0.9% 1,000 ML IV ONE; -SODIUM CHLORIDE 0.9% 1,000 ML ONE
[2021-01-28] MEDS ORDERED: ASCO500 PO (10:29)
[2021-01-28] MEDS ORDERED: MONT-35 PO (10:29)
[2021-01-28] MEDS ORDERED: ATOR20TA86 PO (10:29)
[2021-01-28] MEDS ORDERED: CYCLOBENZAPRINE HCL 10 MG TABLET PO ONE (11:00)
[2021-01-28] MEDS ORDERED: FLUT220HFA IH (11:11)
[2021-01-28 12:01] VITALS: BP 168/81
== END 2021-01-28 12:13 | disposition home or self-care (01) ==
LOC: EMS 10:30
DX: M25.512 Pain in left shoulder (principal); J44.9 Chronic obstructive pulmonary disease, unspecified; E11.9 Type 2 diabetes mellitus without complications; E78.00 Pure hypercholesterolemia, unspecified; I10 Essential (primary) hypertension
CPT/HCPCS: 99283